=== PATIENT | male | born 1990 | race Caucasian/White ===

== ENCOUNTER 2025-08-12 09:54 | Outpatient (AMB) | payer OTHER, SELFPAY ==
--- NOTE | 2025-08-12 10:05 | MHC.PC.OV ---
Vital Signs 08/12/25 10:23 Height 5 ft 10.98 in Weight 269 lb 4 oz BMI 37.6 BP 118/72 Blood Pressure Location Lt brachial Position Sitting Respiration 14 Pulse 69 Pulse Source Pulse Oximeter Temp 98.6 F Temp Source Oral Pulse Oximetry (%) 96 Oxygen Delivery Method Room Air Intake Visit Reasons: Diabetic/Endo referral Intake Note: patient is scheduled to establish care with pcp and would like an endo referral to manage diabetes Imaging Scheduler Required: No Allergies No Known Allergies Allergy (Verified 08/12/25 10:18) Medication List - Last Reconciled 08/12/25 by Aleksandr Marion MD blood-glucose sensor (Dexcom G7 Sensor device) As directed insulin lispro (Humalog U-100 Insulin) 0 - 100 units subcut DAILY Tobacco use date assessed: 08/12/25 Dental Screening Dental Screen Date: 08/12/25 Did you have a dental visit in the last 12 months?: Yes Did you have a dental problem in the last 6 months where you did not have access to dental care?: No Was dental information given to patient?: No HPI Diabetic/Endo referral HPI Details New Patient? ?? Prior PCP:? Benji Darling at [facility] Last office visit/CPE:?> 1 yr ago Acute issue(s):? Management of Type 1 DM and needs ref back to his Endo. Dr Beck ?? PMHx:? DM type 1 SurgHx:?None FHx:?Mom: Unknown. Dad: Vertigo. 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 Rarely more. No drugs PFSH Medical History (Updated 08/12/25 @ 10:44 by Bhupendra Estrada) Diabetes Family History (Updated 08/12/25 @ 10:21 by ELIESER Bergeron) Paternal Grandfather Bladder cancer Paternal Grandmother Breast cancer Social History (Updated 08/12/25 @ 10:21 by ELIESER Bergeron) Housing: House Patient Tobacco Use Status: Former Tobacco user Tobacco use type: Smokeless Tobacco e-Cigarette/Vaping Use: Never Used Second Hand Smoke Exposure: No Use of substances other than those prescribed or required for medical reasons: No service: No Current occupational status: employed Current occupation: [employer] Current occupational exposures/hazards: No Cognitive needs: No Hearing needs: No Vision needs: No Questionnaire PHQ-9 Over the last 2 weeks, how often have you been bothered by any of the following problems? 1. Little interest or pleasure in doing things: not at all 2. Feeling down, depressed, or hopeless: not at all 3. Trouble falling or staying asleep, or sleeping too much: not at all 4. Feeling tired or having little energy: not at all 5. Poor appetite or overeating: not at all 6. Feeling bad about yourself - or that you are a failure or have let yourself or your family down: not at all 7. Trouble concentrating on things, such as reading the newspaper or watching television: not at all 8. Moving or speaking so slowly that other people could have noticed. Or the opposite - being so fidgety or restless that you have been moving around a lot more than usual: not at all 9. Thoughts that you would be better off or of hurting yourself in some way: not at all Total score: 0 Depression Screening Interpretation: Negative Depression Screening Done: Yes 46157 - PHQ-9 Billing: Yes Source: Developed by Drs. Luke Aguilera, Shayy Golden, Ajit Severino and colleagues, with an educational meg from [employer]. Thrive Questionnaire Date Thrive assessed: 08/12/25 I am a: Patient What is your living situation today?: I have a steady place to live Within the past 12 months, did the food you bought not last and you didn't have the money to get more?: Never true Within the past 12 months, did you worry whether your food would run out before you got money to buy more?: Never true Do you have trouble paying for medicines?: No Do you have trouble getting transportation to medical appointments?: No Do you have trouble paying your heating and electricity bill?: No Do you have trouble taking care of your child, family member or friend?: No Do you have trouble with day-to-day activities such as bathing, preparing meals, shopping, managing finances, etc.?: No Are you currently unemployed and looking for a job?: No Are you interested in more education?: No Please select the resources that you would like help with: None Currently or been in a relationship where the following occur: No concerns reported THRIVE Score: 0 AUDIT C Alcohol Use Questionnaire (AUDIT-C) 1. How often do you have a drink containing alcohol?: 2-3 times a week 2. How many drinks containing alcohol do you have on a typical day when you are drinking?: 3 or 4 3. How often do you have six or more drinks on one occasion?: Less than monthly Total Score: 5 Score Reviewed/Action Taken: Yes RAYNE-7 AMB Questionnaire RAYNE-7 Date RAYNE - 7 assessed: 08/12/25 Feeling nervous, anxious, or on edge: 0 = Not at all Not being able to stop or control worryin = Not at all Worrying too much about different things: 0 = Not at all Trouble relaxin = Not at all Being so restless that it is hard to sit still: 0 = Not at all Becoming easily annoyed or irritable: 0 = Not at all Feeling afraid as if something awful might happen: 0 = Not at all Total RAYNE-7 score (0-4 normal; 5-9 mild; 10-14 moderate; 15-21 severe): 0 Source: Developed by Drs. Luke Aguilera, Shayy Golden, Ajit Severino and colleagues, with an educational meg from [employer]. RAYNE-7 Assessment Billing RAYNE-7 Assessment Tool: RAYNE-7 Assessment 30574 ACT Questionnaire In the past 4 weeks, how much of the time did your asthma keep you from getting as much done at work, school or at home?: None of the time During the past 4 weeks, how often have you had shortness of breath?: Not at all During the past 4 weeks, how often did your asthma symptoms wake you up at night or earlier than usual in the morning?: Not at all During the past 4 weeks, how often have you had to use your rescue inhaler or nebulizer medication?: Not at all How would you rate your asthma control during the past 4 weeks?: Completely controlled ACT Interpretation: Positive Score: 25 Physical exam (Primary Care) Vital Signs: Last Vital Signs Temp 98.6 F 08/12/25 10:23 Pulse 69 08/12/25 10:23 Resp 14 08/12/25 10:23 BP 118/72 08/12/25 10:23 Pulse Ox 96 08/12/25 10:23 Oxygen Delivery Method Room Air 08/12/25 10:23 BMI result Body Mass Index 37.6 Tobacco/Smoking Status: Tobacco use Status Tobacco use date assessed 08/12/25 08/12/25 10:23 Patient Tobacco Use Status Former Tobacco user 08/12/25 10:23 Tobacco use type Smokeless Tobacco 08/12/25 10:23 e-Cigarette/Vaping Use Never Used 08/12/25 10:23 PHQ-9: PHQ-9 Score PHQ-9: Total score 0 08/12/25 10:23 Depression Screening Interpretation: Negative Thrive Assessment: Date of Thrive Assessment Date Thrive assessed 08/12/25 08/12/25 10:23 Currently or been in a relationship where the following occur: No concerns reported Results AMB Hemoglobin A1c AMB Hemoglobin A1c 7.3 % Last Edit by ELIESER Bergeron on 08/12/25 10:36 Coding Level of Care Code New Pt Level 3 (01328) New Pt Prev Care 18-39yr(04672 Diagnoses Adult general medical exam Z00.00 Type 1 diabetes E10.9 Additional Codes Asthma Control Questionnaire - ACT Interpretation: Positive ([id number]) RAYNE-7 Assessment Billing - RAYNE-7 Assessment Tool: RAYNE-7 Assessment 05262 ([id number]) PHQ-9 - 49818 - PHQ-9 Billing: Yes ([id number]) Assessment & Plan Assessment & Plan (1) Adult general medical exam: Code(s): Z00.00 - Encounter for general adult medical examination without abnormal findings Category: Medical Plan: 35-year-old male presents as new patient for complete physical exam Exam within normal limits Encouraged healthy diet with active lifestyle and plenty of exercise (2) Type 1 diabetes: Code(s): E10.9 - Type 1 diabetes mellitus without complications Category: Medical Plan: A1c 7.3% which is fairly good control for type 1 diabetes. Goal is less than 7% He is generally followed by Dr. 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 Panel Fast Today Z00.00 - Encounter for general adult medical examination without abnormal findings Complete Blood Count Auto Diff Today Z00.00 - Encounter for general adult medical examination without abnormal findings Lipid Panel Today Z00.00 - Encounter for general adult medical examination without abnormal findings TSH reflex Free T4 Today Z00.00 - Encounter for general adult medical examination without abnormal findings AMB Hemoglobin A1c Today E11.9 - Type 2 diabetes mellitus without complications Referrals Endocrinology Referral E10.9 - Type 1 diabetes mellitus without complications
[2025-08-12 10:23] VITALS: BP 118/72; PULSE 69; RESP 14; TEMP 37; O2SAT 96; BMI 37.6
--- OUTSIDE RECORDS SUMMARY | 2025-08-12 11:44 | XMS_ITS | Clinical Summary ---
Author Organization [facility] Address [address] [facility] [address] [place] [id number] Phone Care Team Providers Care Hookman Name Role Phone Benji Esquivel MD Primary Care Provider [phone] Allergies No known active allergies Medications Medication-Free Text BD insulin syringe ultra fine 0.5ml 31g , Sig: as directed up to 6 times per day subcutaneous as directed 11/05/19 16 Active acetone, urine, test Strp as directed In Vitro prn 09/11/20 11 Active ONETOUCH VERIO Strp stripsIndication s:Type 1 diabetes mellitus without complication 1 each by Miscellaneous route 4 (four) times a day before meals and nightly. 400 strip 3 07/21/20 21 Active DEXCOM G6 TRANSMITTER DeviIndications: Type 1 diabetes mellitus without complication REPLACE TRANSMITTER EVERY 90 DAYS 1 each 3 08/17/20 21 Active DEXCOM G6 COOKING CASING AND DRYING SUPERVISOR MiscIndications: Type 1 diabetes mellitus without complication USE CONTINUOUSLY DIRECTED 1 each 08/17/20 21 Active DEXCOM G6 SENSOR DeviIndications: Type 1 diabetes mellitus without complication USE DIRECTED. REPLACE SENSOR EVERY 10 DAYS 9 each 3 08/17/20 21 Active BAQSIMI 3 mg/actuation SpryIndications: Type 1 diabetes mellitus without complication 1 spray by Nasal route once as needed (for severe hypoglycemia, if unable to eat fasting acting carbs or unconscious). 2 each 2 12/30/19 25 Active HUMALOG U-100 INSULIN 100 unit/mL injection vialIndications: Type 1 diabetes mellitus without complication INJECT UP TO 100 UNITS (SUBCUTANEOUSLY) A DAY VIA INSULIN DIRECTED E10.9 Z96.41 90 mL 3 12/30/19 25 Active DEXCOM G7 SENSOR DeviIndications: Type 1 diabetes mellitus without complication 1 each by Miscellaneous route Every 10 Days. 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 No adjustments made today Hollis returns to work next week which is more physically demanding, we discussed keeping an eye on patterns and reaching out if recommendations for adjustments are needed Assessment & Plan (06/29/2024 9:24 AM EDT): Current insulin pump settings (changes in bold) Time Basal Rates? ICR ISF Target IOB 12am 1.45 10 40 100mg/dl 4hrs 3am 1.4u/hr 10 40 110 (in CIQ) 5hrs (in CIQ) 630am 1.0u/hr 10 40 5hrs (in CIQ) 5pm 1.35uhr 7 35 TOTAL 29.2u/day Change to insulin pump settings (changes in bold) (if hyperglycemia persists overnight despite running in CIQ regular mode) Time Basal Rates? ICR ISF Target IOB 12am 1.55 10 40 100mg/dl 4hrs 3am 1.5u/hr 10 40 110 (in CIQ) 5hrs (in CIQ) 630am 1.0u/hr 10 40 5hrs (in CIQ) 5pm 1.35uhr 7 35 8pm 1.45 7 35 Adjustments made as noted above We discussed differences to sleep mode and regular CIQ - Miguel Angel could benefit from more auto corrections at night, something he will not receive while in sleep mode We discussed if this doesn't help overnight hyperglycemia then would recommend the above basal rate changes to overnight delivery Discussed differences between G6 and G7, best practices to not lose connectivity Assessment & Plan (12/27/2023 5:10 PM EDT): Current insulin pump settings (changes in bold) Time Basal Rates? ICR ISF Target IOB 12am 1.45 10 40 100mg/dl 4hrs 3am 1.4u/hr 10 40 110 (in CIQ) 5hrs (in CIQ) 630am 1.0u/hr 10 40 5hrs (in CIQ) 5pm 1.35uhr 7 35 TOTAL 29.2u/day Adjustments made as noted above Tighter carb ratio and correction factor will hopefully aid in reduction of post prandial hyperglycemia after dinner, and assist with corrections following dinner when hyperglycemia occurs Recommend setting sleep mode later so Miguel Angel can benefit from auto corrections several times before entering into sleep mode Discussed importance of site rotation and choosing sites away from scar tissue, Miguel Angel is limited by sites with tubing, primarily only using the abdomen and sides Briefly discussed insulin pumps including Tandem Mobi and Omnipod which may help allow more convenient access to new site placement such as in the arms Assessment & Plan (12/27/2022 11:51 AM EDT): No adjustments made today. 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 Reviewed Exercise Activity feature and showed him how to use [employer] Simulator Cecilio to answer questions as well as allow him to experiment with his pump without making actual changes. Time Basal Rates? ICR ISF Target IOB 12am 1.45 10 40 100mg/dl 4hrs 3am 1.4u/hr 10 40 110 (in CIQ) 5hrs (in CIQ) 630am 1.0u/hr 10 40 5hrs (in CIQ) 5pm 1.35uhr 8 40 TOTAL 29.25u/day Encouraged Miguel Angel to bolus about 10 minutes prior to eating and use a memory aid if he finds that helpful. Assessment & Plan (08/29/2022 3:29 PM EST): Miguel Angel's basal insulin averages 54% with his bolus insulin 46% overall. His elevated pattern tends to occurs after dinner through the automation and controls manager hours. He tends to eat well at his meals and will snack a little, but stops usually by 9pm. We increased insulin to carb ratio in evening slightly. Time Basal Rates? ICR ISF Target IOB 12am 1.45 10 40 100mg/dl 4hrs 3am 1.4u/hr 10 40 110 (in CIQ) 5hrs (in CIQ) 630am 1.0u/hr 10 40 5hrs (in CIQ) 5pm 1.35uhr 8 40 TOTAL 29.25u/day Miguel Angel initially asked if this meant he had to carb count differently, but realized he only needs to enter his total carbs in and allow the pump calculator to provide the correct amount of insulin. The modest basal rate increase from last visit in the automation and controls manager appears to have stabilized his higher overnight-automation and controls manager sugars. Assessment & Plan (05/28/2022 8:23 PM EDT): Current insulin pump setting Time Basal Rates? ICR ISF Target IOB 12am 1.45 10 40 100mg/dl 4hrs 3am 1.4u/hr 10 40 110 (in CIQ) 5hrs (in CIQ) 630am 1.0u/hr 10 40 5hrs (in CIQ) 5pm 1.35uhr 10 40 TOTAL 29.25u/day Janets sugars tend to be elevated in the very automation and controls manager hours, 67% >180. We added a modestly higher basal rate setting from 12a-3a. Encouraged Miguel Angel to consider starting this higher basal rate slightly earlier around 9 or 10pm if he continues to run higher at these times. Overall, Miguel Angel appears more comfortable with correctly bolusing with his Tandem pump now. We discussed upcoming upgrade to Dexcom G7 sometime this fall. Assessment & Plan (01/22/2022 2:51 PM EDT): Current insulin pump setting Time Basal Rates? ICR ISF Target IOB 12am 1.4u/hr 10 40 100mg/dl 4hrs 630am 1.0u/hr 10 40 110 (in CIQ) 5hrs (in CIQ) 5pm 1.35uhr 10 40 TOTAL 29.1u/day We did not adjust insulin pump settings today We discussed how to manually enter corrections if not recommended based on IOB, advised not to enter fake carbs Encouraged to correct with injection in case of faulty infusion set We discussed upcoming upgrade to Dexcom G7 sometime this summer Assessment & Plan (07/21/2021 3:45 PM EDT): Current insulin pump setting Time Basal Rates? Time ICR Time ISF Time Target IOB 12am 1.4u/hr 12am 10 12am 40 12am 100mg/dl 4hrs 630am 1.0u/hr 5pm 1.35uhr We did not adjust current insulin pump settings due to a lack of data, given today's A1c Miguel Angel likely needs adjustment of his insulin pump settings which we will undertake once CGM data is available for review Will be upgrading to Tandem X2 soon Assessment & Plan (05/27/2020 10:45 AM EDT): Current insulin pump setting Time Basal Rates? Time ICR Time ISF Time Target IOB 12am 1.4u/hr 12am 10 12am 40 12am 100mg/dl 4hrs 630am 1.0u/hr 5pm 1.35uhr FPG are elevated very frequently, Miguel Angel may need higher overnight basal rate Encouraged to evaluate overnight patterns once he is back on CGM Advised to call with any questions or concerns related to programing his new insulin pump Assessment & Plan (11/26/2019 10:36 PM EST): Current insulin pump setting Time Basal Rates Time ICR Time ISF Time Target IOB 12am 1.4u/hr 12am 10 12 am 40 12 am 100mg/dl 4hrs 630am 1.0u/hr 5pm 1.35uhr We did not have enough blood sugar data to evaluate current pump settings, no changes made Encouraged to monitor blood sugars more or resume CGM use Encouraged to continue to bolus for all carbs Assessment & Plan (10/23/2018 9:09 PM EST): We did not make any changes to Miguel Angel's insulin pump settings Advised to monitor more so that we can assess patterns and evaluate need for insulin delivery changes, encouraged to call [employer] for new Enlite transmitter, we discussed the benefits of CGM in evaluating glucose patterns Advised to monitor elevated readings in latter part of the day, may need I:C ratio changes for meals/snacks in afternoon/evening or basal rate adjustment Will return to meet with Yue Jernigan in the spring, will be due for pump upgrade in spring 2019 Type 1 diabetes mellitus without complication Overview (10/23/2018): DIABETES HISTORY Diagnosis - type 1 diabetes, dx 2011 Treatment - insulin pump since 6 months after diagnosis Assessment & Plan (12/29/2024 9:48 AM EDT): Control mildly improved per A1c, CGM data is improved over the last week, previous week Hollis was on vacation Suboptimal TIR, we discussed though that this and average improved after the past week once getting back to normal home routine, No changes to settings today, Hollis will start back at work next week and this is more physical labor so time in range may improve further, we discussed keeping an eye on blood sugars and if at more risk for hypoglycemia to reach out for insulin pump adjustment recommendations Continues using CGM consistently Due for annual routine labs, these were ordered and printed for Hollis so that he can have these done at an outside lab Due for annual eye exam, Hollis is encouraged to book this Encouraged continued efforts at balanced, mindful eating Encouraged continued efforts at physical activity as tolerated We will follow up in 6 months. Advised to contact office with any questions or concerns in the interim Assessment & Plan (06/29/2024 9:13 AM EDT): Control in mildly improved per A1c, though GMI estimates slightly better control compared to recent A1c Suboptimal TIR and Miguel Angel seems to spend the most time out of range overnight, we discussed adjustments to pump settings that may help reduce the rate of hyperglycemia after dinner and overnight, Miguel Angel would first like to run out of sleep mode to see if this helps. If not, there are proposed setting adjustments that were provided to Miguel Angel No changes made to daytime settings, this seems to be when Miguel Angel spends the most time in range Continues using CGM consistently Up to date on routine labs, LDL mildly elevated though HDL/TG ratio reassuring Encouraged continued efforts at balanced, mindful eating Encouraged continued efforts at physical activity as tolerated We will follow up in 6 months. Advised to contact office with any questions or concerns in the interim Assessment & Plan (12/27/2023 5:15 PM EDT): Control has worsened per A1c, though GMI estimates slightly better control compared to recent A1c Suboptimal TIR and Miguel Angel seems to spend the most time out of range overnight, we discussed adjustments to pump settings that may help reduce the rate of hyperglycemia after dinner and overnight No changes made to daytime settings, this seems to be when Miguel Angel spends the most time in range Continues using CGM consistently Up to date on routine labs, LDL mildly elevated though HDL/TG ratio reassuring Encouraged continued efforts at balanced, mindful eating Encouraged continued efforts at physical activity as tolerated We will follow up in 6 months. Advised to contact office with any questions or concerns in the interim Assessment & Plan (12/27/2022 11:47 AM EDT): Hollis has improved his glycemic control with an average glucose of 181 versus last visit at 194. His sugars are in target range 55%, almost 10% increase from fall. Miguel Angel was on vacation with his diet not as tight . He also reports that he often boluses during or after eating. We discussed importance of bolusing prior to eating with providing some kind of memory aid such as a card or old syrynge, no needle, taped to refrigerator or on lunch box. 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 We discussed setting another profile in his pump with a little less aggressive basal rate during work hours. We additionally discussed the Exercise Activity. Showed him the Tandem simulator cecilio and how to research areas of his pump if he has questions. Congratulated Miguel Angel on his good efforts. Reviewed hypoglycemia prevention, recognition and management. Encouraged to continue to make healthy diet choices and remain as physically active as tolerates. Encouraged to contact us with any concerns or question and follow up in 3 months. Assessment & Plan (08/29/2022 3:47 PM EST): Overall Miguel Angel's glycemic control has improved markedly from 1 year ago using Tandem's CIQ feature on his insulin pump. Miguel Angel's recent average glucose has increased modestly from 186 - 194 and he is in target range 46% now versus 52% with his last visit. These higher sugars are also reflective of the Thanksgiving holiday. We adjusted his evening insulin to carb ratio to address his higher sugars in the evening. We reviewed features and benefits of his Tandem CIQ. Reviewed hypoglycemia prevention, recognition and management. Encouraged to continue to make healthy diet choices and remain as physically active as tolerates. Encouraged to contact us with any concerns or question and follow up in 4 months. Assessment & Plan (05/28/2022 8:29 PM EDT): Overall doing well, A1C remains fairly stable on Tandem/Dexcom AID system with improved glucose patterns. Additionally, Miguel Angel reports feeling more comfortable with his pump. We made a small adjustment in his automation and controls manager basal rate to gently address routinely higher sugars and encouraged him to consider starting this rate a little earlier if need. Encouraged to continue to stay active and to continue efforts at healthy eating Will return to meet with me in 4 months, declines visit with family living educator for now; encouraged to call with any questions or concerns Assessment & Plan (01/22/2022 2:53 PM EDT): Overall doing well, A1c is much improved since transition to Tandem/Dexcom AID system, I expect that glucose patterns overall are much improved with higher TIR than in the past though we were limited by lack of glucose data in the past We did not adjust insulin pump settings today, we discussed some features of Tandem X2 and Dexcom CGM Encouraged to continue to stay active and to continue efforts at healthy eating Will return to meet with me in 4 months, declines visit with family living educator for now; encouraged to call with any questions or concerns Assessment & Plan (07/21/2021 3:47 PM EDT): Overall doing well, but A1c has worsened, we are unable to fully evaluate glucose patterns to further optimize this due to lack of data available for review We did not adjust insulin pump settings but he is encouraged to continue to evaluate his overnight patterns Miguel Angel zoie be upgrading his insulin pump to Tandem X2 soon, he will also utilize CGM which will allow him more information regarding his current settings and the need for adjustment to these Encouraged to continue to stay active and to continue efforts at healthy eating Will return to meet with our family living educator in 3 months, we will meet again in 6 months; encouraged to call with any questions or concerns Assessment & Plan (05/27/2020 10:50 AM EDT): Overall doing well, A1c is improved however we are unable to fully evaluate glucose patterns to further optimize this due to lack of data We did not adjust insulin pump settings but he is encouraged to continue to evaluate his overnight patterns Miguel Angel is encouraged to resume CGM use once he receives his new sensor, if any issues with this he knows to contact [employer] to troubleshoot Encouraged to continue to stay active and to continue efforts at healthy eating Advised to have routine eye exam as he is overdue Encouraged to call with any questions or concerns Assessment & Plan (11/26/2019 10:45 PM EST): Continues with suboptimal self care, was doing better with using CGM last summer Lifestyle is suboptimal during less active more sedentary winter season, 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, aware to watch for increased risk for low blood sugars as activity increases We discussed the need for more regular monitoring and/or use of CGM to evaluate blood sugar patterns which would help direct more optimal insulin dosing Due for routine eye care appointment, encouraged to schedule this soon Up to date on routine labs, had these done in November 2018 and we reviewed results today -- LDL modestly elevavted, advised to watch intake of red meat, encouraged to be mindful about healthy eating, being more consistent with exercise Encouraged to call with any questions or concerns Assessment & Plan (10/23/2018 9:15 PM EST): Continues with suboptimal self care We discussed the need for more regular monitoring and/or use of CGM to evaluate blood sugar patterns which would help direct more optimal insulin dosing We discussed importance of monitoring at 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 Starting to be more mindful about healthy eating, exercise, encouraged to continue these positive lifestyle changes Due for routine eye care appointment, due for routine labs Resolved Problems Problem Noted Date Diagnosed Date Resolved Date Insulin pump fitting or adjustment 05/08/2019 07/21/2021 Immunizations Immunization Administration Dates Next Due COVID-19 (Pre-07/22) Pfizer Vaccine, mRNA, PF 11/16/2020,10/26/2020 DTP 06/30/1993, 2,1992,02/28 DTaP 02/24/1997 Hepatitis B 1992,1992,1992 Hib,HbOC 03/30/1993, 2,1992,02/28 IPV 02/24/1997, 3,1992,02/28 MMR 02/24/1997,03/30/1993 Meningococcal MPSV4 05/16/2007 Pneumococcal conjugate PCV20 12/03/2023 Td (adult),2 Lf Tetanus Toxo id, PF, Adsorbed 03/25/2002 Tdap 05/07/2017,05/16/2007 Family History Medical History Relation Comments CV disease Maternal Grandfather Cancer Paternal Grandfather Cancer Paternal Grandmother Relation Status Comments Father Alive Maternal Grandfather Mother Alive Paternal Grandfather Paternal Grandmother Social History Tobacco Use Types Packs/Day Years Used Date Smoking Tobacco: Never Smokeless Tobacco: Never Tobacco Cessation:Counseling Given: Not Answered Alcohol Use Standard Drinks/Week Comments Yes 3 (1 standard drink = 0.6 oz pur e alcohol) usually on weekends only Child or Family Care Answer Date Record ed Do you have problems with on e of the following making it difficult for you to work, study, or receive health care? No 12/03/2023 Education Answer Date Recorded Are you interested in help w ith more adult education (for example, completing high school, GED, job training, learning the [place] language, technical skills, or developing parenting skills)? No 12/03/2023 Are you concerned about learning? Not on file 12/03/2023 No 12/03/2023 Yes 12/03/2023 Food Answer Date Recorded Within the past 6 months we worried whether our food would run out before we got money to buy more. Never True 12/03/2023 Within the past 6 months the food we bought just didn't last and we didn't have enough money to get more. Never True Residential Stability Answer Date Recor ded What is your housing situation today? I have bethanie sing 12/03/2023 How many times have you move d in the past 12 months? Zero (I did not move) 12/03/2023 Paying for Meds Answer Date Recorded Do you have trouble paying for medicines? No 12/03/2023 Paying Utility Bills Answer Date Record ed Do you have trouble paying your heating or elect ricity bill? No 12/03/2023 Transportation Answer Date Recorded Has the lack of transportati on kept you from medical appointments or from getting medications? No 12/03/2023 Unemployment Answer Date Recorded Are you currently unemployed or working on a part-time or temporary basis, and looking for work? No 12/03/2023 Digital Access Answer Date Recorded No 12/03/2023 Yes 12/03/2023 Do you have reliable internet access at home? Ye s 12/03/2023 Do you have a device (e.g., phone, tablet, computer) with a working camera? Yes 12/03/2023 Intimate Partner Violence Answer Date R ecorded Denied Basic Needs Not on file 12/03/2023 In the past 12 months have y ou been in a relationship with a person who hurts, threatens, or tries to control you? No 12/03/2023 Worried food would run out Not on file 12/02 In the past 12 months have y ou been in a relationship with a person who hurts, threatens, or tries to control you? No 12/03/2023 Sex and Gender Information Value Date Recorded Sex Assigned at Not on file Legal Sex Male 9:00 PM EDT Gender Identity Not on file Sexual Orientation Not on file Last Filed Vital Signs Vital Sign Reading Time Taken Comments Blood Pressure 126/84 12/29/2024 8:22 AM EDT Pulse 80 12/29/2024 8:22 AM EDT Temperature 36.3 C (97.3 F) 06/29/2024 8:04 AM EDT Respiratory Rate - - Oxygen Saturation 98% 12/29/2024 8:22 AM EDT Inhaled Oxygen Concentration - - Weight 122.1 kg (269 lb 3.2 oz) 12/29/2024 8:22 AM EDT Height 182.6 cm (5' 11.89 ) 12/29/2024 8:22 AM E DT Body Mass Index 36.62 12/29/2024 8:22 AM EDT Plan of Treatment Health Maintenance Due Date Last Done Comments DIABETIC EYE EXAM 01/23/2024 01/22/2023 DEPRESSION SCREENING 12/02/2024 12/03/2023 LIPID PANEL 12/02/2024 12/03/2023 URINE MICROALBUMIN/CREATININE RATIO 12/02/2024 12/03/2023 INFLUENZA VACCINE (#1) 2025 COVID-19 VACCINE ( season) 2025 11/16/2020, 10/26/2020 BLOOD PRESSURE 06/30/2025 12/29/2024 HEMOGLOBIN A1C 06/30/2025 12/29/2024, 06/02, 12/03/2023, Additional history exists Adult Td,Tdap Booster 05/07/2027 05/07/2017 , 05/16/2007, 03/25/2002 HIB VACCINES Completed 03/30/1993, 09/1991, 1992, Additional history exists IPV VACCINES Completed 02/24/1997, 09/1992, 1992, Additional history exists MENINGOCOCCAL VACCINES (ACWY) Aged Out 05/16/2007 No longer eligible based on patient's age to complete this topic HEPATITIS C SCREENING Completed 12/03/2023 HIV ONE-TIME SCREENING (18-65 YEARS) Completed 12/03/2023 PNEUMOCOCCAL VACCINES (0-49 years) Completed 12/03/2023 SMOKING STATUS SCREENING (Once After 26 Yrs) Completed 12/29/2024 HEPATITIS A VACCINES Aged Out No long er eligible based on patient's age to complete this topic MENINGOCOCCAL VACCINES (B) Aged Out N o longer eligible based on patient's age to complete this topic Medical Devices Not on file Procedures Procedure Name Priority Date/Time Associated Diagnosis Comments POCT HEMOGLOBIN A1C Routine 12/29/2024 8 :31 AM EDT Type 1 diabetes mellitus without complication MICROALBUMIN/CREATIN INE RATIO, RANDOM URINE Routine 12/03/2023 10:03 AM EST Annual physical exam LIPID PANEL Routine 12/03/2023 9:56 AM EST Annual physical exam Type 1 diabetes mellitus without complication HEPATITIS C ANTIBODY, QUALITATIVE Routine 12/03/2023 9:56 AM EST Need for hepatitis C screening test DIABETES EYE EXAM FOR RESULT ENTRY ONLY Routine 01/22/2023 from Last 3 Months or Most Recently Relevant to Health Maintenance Results * (ABNORMAL) POCT Hemoglobin A1c (12/29/2024 8:31 AM EDT) Hemoglobin A1c 7.5(A) 4.2 - 5.6 % [facility] Other 12/29/2024 8:31 AM EDT us Angeles Guillermo CNP LAB POCT ENTER/EDIT ORDERABLE S Final Result Performing Organization Address [facility] Co de Phone Number [address] [address], [facility] * (ABNORMAL) Microalbumin/creatinine ratio, random urine (12/03/2023 10:03 AM EST) URINE MICROALBUMIN 2.5(H) 0 - 2.3 mg/dL [facility] URINE CREATININE 320 mg/dL [facility] MICROALB/CRE RATIO 7.8 0 - 20 mg/g Cre [facility] Urine (Urine) 12/03/2023 10: 03 AM EST 12/03/2023 10:05 AM EST us Benji Esquivel MD LAB URINE ORDERABLES Final Resu lt Performing Organization Address [facility] Co de Phone Number [address] [address] * Hepatitis C antibody, qualitative (12/03/2023 9:56 AM EST) HCV NON-REACTIV E NON-REACTI VE [facility] Blood 12/03/2023 9:56 AM EST 12/03/2023 9:58 AM EST us Benji Esquivel MD LAB BLOOD BKR ORDERABLES Final Result Performing Organization Address [facility] Co de Phone Number [address] [address] * (ABNORMAL) Lipid panel (12/03/2023 9:56 AM EST) HDL 54 mg/dL [facility] Comment: Interpretation <40 mg/dL: Low HDL cholesterol (major risk factor for CHD) Greater than or equal to 60 mg/dL: High HDL cholesterol ( negative risk factor for CHD) HDL - cholesterol is affected by a number of factors, e.g. smoking, excerise, hormones, sex and age. CHOLESTEROL 169 0 - 240 mg/dL [facility] TRIGLYCERIDES 41 30 - 160 mg/dL [facility] LDL 107 50 - 129 mg/dL [facility] Comment: LDL levels in terms of risk for coronary heart disease: <100 mg/dL: Optimal 100-129 mg/dL: Near or above optimal 130-159 mg/dL: Borderline high 160-189 mg/dL: High >190 mg/dL: Very High CARDIAC RISK RATIO 3.1(L) 3.4 - 5.0 C [facility] Blood 12/03/2023 9:56 AM EST 12/03/2023 9:58 AM EST us Benji Esquivel MD LAB BLOOD BKR ORDERABLES Final Result Performing Organization Address City/State/[facility] Co de Phone Number [address] [address] * DIABETES EYE EXAM FOR RESULT ENTRY ONLY (01/22/2023) us Benji Esquivel MD HEALTH MAINTENANCE Edited Resul t - Final from Last 3 Months or Most Recently Relevant to Health Maintenance [place] [address] [address] [place] [address] [place] [address] [place] [address] [place] [address] [place] [address] [place] [address] PLAN Care Teams [place] Relationship Specialty Start Date End Date Benji Esquivel MD [address] [place] [address], [address] [place] [address] [email or web address] PCP - General Internal Medicine 09/04/21 Additional Source Comments The information contained in this document represents components of the legal health record. It is not the complete legal health record.[facility]
== END 2025-08-12 10:54 | disposition home or self-care (01) ==
LOC: HO.HMCFM 09:55
PROVIDERS: PCP Family Medicine; Visit Provider Family Medicine
DX: Z00.00 Encounter for general adult medical examination without abnormal findings (principal); E10.9 Type 1 diabetes mellitus without complications

== ENCOUNTER → 2025-08-12 09:54 | Outpatient (BNVA) | payer OTHER, SELFPAY | PROVIDERS: PCP Family Medicine; Visit Provider Family Medicine | DX: Z00.00 Encounter for general adult medical examination without abnormal findings (principal); E10.9 Type 1 diabetes mellitus without complications; I10 Essential (primary) hypertension; E55.9 Vitamin D deficiency, unspecified; E53.8 Deficiency of other specified B group vitamins | CPT/HCPCS: 83036; 96127; 96160 ==

== ENCOUNTER 2025-09-08 08:49 | Outpatient (REF) | payer OTHER, SELFPAY ==
[2025-09-08 11:08] LABS: MANUAL DIFF FLAG NO
[2025-09-08 11:29] LABS: Hematocrit 42.2 % (42.0-52.0); Hemoglobin 14.2 g/dl (14.0-18.0); Imm Gran Abs Auto 0.03 X10*3/uL (0.00-0.03); Imm Gran Pct Auto 0.5 % (0.0-0.4); Lymphocytes Absolute Auto 1.9 X10*3/uL (1.2-4.9); Mean Corpuscular HGB Conc 33.6 g/dl (31.0-36.0); Mean Corpuscular Hemoglobin 28.6 pg (27.0-33.0); Mean Corpuscular Volume 85.1 fL (80.0-98.0); NRBC Abs Auto 0.000 X10*3/uL (0.0-0.012); NRBC Pct Auto 0.0 /100WBC (0.0-0.2); Platelet Count 216 X10*3/uL (160-400); Red Blood Count 4.96 X10*6/uL (4.60-5.80); White Blood Count 6.1 X10*3/uL (4.8-10.8)
[2025-09-08 11:30] LABS: Appearance Urine Clear; Glucose Urine UA 250 mg/dL (Negative); PH 5.5 (5.0-9.0); Specific Gravity - Urine 1.025 (1.005-1.025)
[2025-09-08 12:30] LABS: Alanine Aminotransferase 54 U/L (0-40); Albumin Level 4.6 g/dL (3.5-5.0); Alkaline Phosphatase 102 U/L (39-117); Anion Gap 10 (12-20); Aspartate Amino Transferase 52 U/L (5-37); Blood Urea Nitrogen 14 mg/dL (9-16); Calcium 9.2 mg/dL (8.4-10.2); Carbon Dioxide 26 mmol/L (22-29); Chloride 108 mmol/L (96-108); Cholesterol 238 mg/dL (<200); Estimated Glomerular Filt Rate > 60; HDL Cholesterol 39 mg/dL (>40); Potassium 4.4 mmol/L (3.3-5.1); Sodium 140 mmol/L (135-145); Total Protein 7.0 g/dL (6.5-8.0); Triglycerides 280 mg/dL (<150)
[2025-09-08 12:44] LABS: Folate 9.8 ng/mL (> or = 4.0); Vitamin B12 372 pg/mL (200-900)
[2025-09-08 12:56] LABS: Microalbum/Creatinine Ratio Ur 23.6 ug/mg cr (<30)
== END 2025-09-08 08:50 | disposition home or self-care (01) ==
LOC: HO.WFDLDS 08:49
PROVIDERS: Visit Provider Family Medicine
DX: Z00.00 Encounter for general adult medical examination without abnormal findings (principal); I10 Essential (primary) hypertension; E55.9 Vitamin D deficiency, unspecified; E53.8 Deficiency of other specified B group vitamins
CPT/HCPCS: 36415; 80053; 80061; 81003; 82043; 82306; 82570; 82607; 82746; 84443; 85025

== ENCOUNTER 2025-09-10 16:11 | Outpatient (AMB) | payer OTHER, SELFPAY ==
--- NOTE | 2025-09-10 13:38 | A.OFFPC_ITS ---
Intake Visit Reasons: f/u CPE-labs via telemed Backing In Machine Tender Required: No Allergies No Known Allergies Allergy (Verified 09/10/25 16:09) Medication List - Last Reconciled 09/10/25 by Aleksandr Marion MD blood-glucose sensor (Dexcom G7 Sensor device) As directed insulin lispro (Humalog U-100 Insulin) 0 - 100 units subcut DAILY Tobacco use date assessed: 09/10/25 Dental Screening Dental Screen Date: 09/10/25 Did you have a dental visit in the last 12 months?: Yes Did you have a dental problem in the last 6 months where you did not have access to dental care?: No Was dental information given to patient?: Patient has dentist HPI f/u CPE-labs via telemed HPI Details 35 y/o male presents to f/u CPE labs via telemed. Labs drawn 09/08/25. Reviewed labs with pt. Fasting glucose 130. Elevated liver enzymes - AST 52, ALT 54. Triglycerides 280. TC 238. LDL 143. [facility] at 39. [facility] Medical History (Updated 09/10/25 @ 16:27 by Bhupendra Estrada) Diabetes Family History Paternal Grandfather Bladder cancer Paternal Grandmother Breast cancer Social History (Updated 09/10/25 @ 16:10 by Renay Greenwood [facility]) Housing: House Alcohol intake: current Patient Tobacco Use Status: Former Tobacco user Tobacco use type: Smokeless Tobacco e-Cigarette/Vaping Use: Never Used Second Hand Smoke Exposure: No service: No Current occupational status: employed Current occupation: [employer] Current occupational exposures/hazards: No Cognitive needs: No Hearing needs: No Vision needs: No Questionnaire Thrive Questionnaire Date Thrive assessed: 08/12/25 RAYNE-7 AMB Questionnaire RAYNE-7 Date RAYNE - 7 assessed: 08/12/25 Source: Developed by Drs. Luke Aguilera, Shayy Golden, Ajit Severino and colleagues, with an educational meg from [employer]. Review of Systems Const Denies chills, Denies fatigue, Denies fever(s), Denies headache(s) and Denies weakness ENT Denies dizziness and Denies headache(s) Card Denies dyspnea Resp Denies cough, Denies dyspnea, Denies wheezing and Denies other (shortness of breath) Musc Denies numbness and Denies tingling Neuro Denies dizziness, Denies headache(s), Denies numbness, Denies tingling and Denies weakness Psych Denies anxiety and Denies depression Endo Denies fatigue Aller/Immun Denies wheezing Physical exam (Primary Care) Tobacco/Smoking Status: Tobacco use Status Tobacco use date assessed 09/10/25 09/10/25 16:10 Patient Tobacco Use Status Former Tobacco user 09/10/25 16:10 Tobacco use type Smokeless Tobacco 09/10/25 16:10 e-Cigarette/Vaping Use Never Used 09/10/25 16:10 Thrive Assessment: Date of Thrive Assessment Date Thrive assessed 08/12/25 09/10/25 13:39 Telehealth Telehealth Telehealth Platform: Telephone Location of provider rendering services: practice address Location of patient: address on file Patient Identification confirmed using: Name, : Yes Telehealth method: voice only Patient verbally consented to treatment: Yes Patient verbally consented to billing insurance company: Yes Patient informed of any privacy concerns related to visit: Yes Coding Level of Care Code Tele Est Pt Level 2 (52811) Diagnoses Elevated liver enzymes R74.8 Elevated LDL cholesterol level E78.00 Assessment & Plan Assessment & Plan (1) Elevated liver enzymes: Code(s): R74.8 - Abnormal levels of other serum enzymes Category: Medical Plan: Wildly elevated liver enzymes. Patient will work on hydration and weight loss. Will recheck in a few months. If still elevated or higher, will get an ultrasound. (2) Elevated LDL cholesterol level: Code(s): E78.00 - Pure hypercholesterolemia, unspecified Category: Medical Plan: Work on a diet low in saturated fats and cholesterol. Work on weight loss. Will recheck lipids in about three months. If unable to significantly improve LDL, will start medication. Orders: Orders LDL Cholesterol Direct Today E78.00 - Pure hypercholesterolemia, unspecified, E78.5 - Hyperlipidemia, unspecified Comprehensive [place]. Panel Fast Today R74.8 - Abnormal levels of other serum enzymes, Z00.00 - Encounter for general adult medical examination without abnormal findings
--- OUTSIDE RECORDS SUMMARY | 2025-09-10 20:41 | XMS_ITS | Clinical Summary ---
Author Organization [facility] Address [address] [place] [id number] Phone Care Team Providers Care Butcher Name Role Phone Benji Esquivel MD Primary Care Provider [phone] Allergies No known active allergies Medications Medication-Free [...] each 3 08/17/20 21 Active DEXCOM G6 JIG GRINDER MiscIndications: Type 1 diabetes mellitus without complication [...] feature and showed him how to use meQuilibrium Simulator Cecilio to answer questions as well [...] tends to occurs after dinner through the aluminum pourer hours. He tends to eat well at [...] rate increase from last visit in the aluminum pourer appears to have stabilized his higher overnight-aluminum pourer sugars. Assessment & Plan (05/28/2022 8:23 PM EDT): Current insulin pump setting Time Basal Rates? ICR ISF Target IOB 12am 1.45 10 40 100mg/dl 4hrs 3am 1.4u/hr 10 40 110 (in CIQ) 5hrs (in CIQ) 630am 1.0u/hr 10 40 5hrs (in CIQ) 5pm 1.35uhr 10 40 TOTAL 29.25u/day Janets sugars tend to be elevated in the very aluminum pourer hours, 67% >180. 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 We discussed setting another profile in [...] We made a small adjustment in his aluminum pourer basal rate to gently address routinely higher sugars and encouraged him to consider starting this rate a little earlier if need. Encouraged to continue to stay active and to continue efforts at healthy eating Will return to meet with me in 4 months, declines visit with wellness educator for now; encouraged to call with [...] me in 4 months, declines visit with wellness educator for now; encouraged to call with [...] eating Will return to meet with our wellness educator in 3 months, we will meet [...] issues with this he knows to contact [employer] to troubleshoot Encouraged to continue to stay [...] high school, GED, job training, learning the Chinese language, technical skills, or developing parenting skills)? [...] Completed 03/30/1993, 09/1991, 1992, Additional history exists MENINGOCOCCAL VACCINES (ACWY) [...] EST Need for hepatitis C screening test HM DIABETES EYE EXAM FOR RESULT ENTRY ONLY Routine 01/22/2023 from Last 3 Months or Most Recently Relevant to Health Maintenance Results * (ABNORMAL) POCT Hemoglobin A1c (12/29/2024 8:31 AM EDT) [facility] Hemoglobin A1c 7.5(A) 4.2 - 5.6 % [facility] Other 12/29/2024 8:31 AM EDT us Angeles Guillermo CNP LAB POCT ENTER/EDIT ORDERABLE S Final Result Performing Organization Address [facility] Co de Phone Number [address] [address], [facility] * (ABNORMAL) Microalbumin/creatinine ratio, random urine (12/03/2023 10:03 AM EST) [facility] URINE MICROALBUMIN 2.5(H) 0 - 2.3 mg/dL [facility] URINE CREATININE 320 mg/dL [facility] MICROALB/CRE RATIO 7.8 0 - 20 mg/g Cre [facility] Urine (Urine) 12/03/2023 10: 03 AM EST 12/03/2023 10:05 AM EST us Benji Esquivel MD LAB URINE ORDERABLES Final Resu lt Performing Organization Address [facility] Co de Phone Number [address] [address] * Hepatitis C antibody, qualitative (12/03/2023 9:56 AM EST) [facility] HCV NON-REACTIV E NON-REACTI VE [facility] Blood 12/03/2023 9:56 AM EST 12/03/2023 9:58 AM EST us Benji Esquivel MD LAB BLOOD BKR ORDERABLES Final Result Performing Organization Address [facility] Co de Phone Number [address] [address] * (ABNORMAL) Lipid panel (12/03/2023 9:56 AM EST) [facility] HDL 54 mg/dL [facility] Comment: Interpretation <40 mg/dL: Low HDL cholesterol (major risk factor for CHD) Greater than or equal to 60 mg/dL: High HDL cholesterol ( negative risk factor for CHD) HDL - cholesterol is affected by a number of factors, e.g. smoking, excerise, hormones, sex and age. CHOLESTEROL 169 0 - 240 mg/dL [facility] TRIGLYCERIDES 41 30 - 160 mg/dL [facility] LDL 107 50 - 129 mg/dL [facility] Comment: LDL levels in terms of risk for coronary heart disease: <100 mg/dL: Optimal 100-129 mg/dL: Near or above optimal 130-159 mg/dL: Borderline high 160-189 mg/dL: High >190 mg/dL: Very High CARDIAC RISK RATIO 3.1(L) 3.4 - 5.0 C [facility] Blood 12/03/2023 9:56 AM EST 12/03/2023 9:58 AM EST us Benji Esquivel MD LAB BLOOD BKR ORDERABLES Final Result [facility] [address] [place], [place] [id number] * DIABETES EYE EXAM FOR RESULT ENTRY ONLY (01/22/2023) us Benji Esquivel MD HEALTH MAINTENANCE Edited Resul t - Final from Last 3 Months or Most Recently Relevant to Health Maintenance [place] [address] [address] [place] [address] [address] [address] [place] [address] [address] [facility] [place] [address] [address] [place] [id number] [place] [address] PLAN [facility] Address: [place] [address] [place] [address] Care Teams Butcher Relationship Specialty Start Date End Date Benji Esquivel MD [address] [place] [address], [address] [place] [address] PCP - General Internal Medicine 09/04/21 Additional Source Comments The information contained in this document represents components of the legal health record. It is not the complete legal health record.[facility]
== END 2025-09-10 17:05 | disposition home or self-care (01) ==
LOC: HO.HMCFM 16:11
PROVIDERS: PCP Family Medicine; Visit Provider Family Medicine
DX: R74.8 Abnormal levels of other serum enzymes (principal); E78.00 Pure hypercholesterolemia, unspecified